=== PATIENT | male | born 1950 | race Caucasian/White ===

== ENCOUNTER → 2020-07-06 | Outpatient (CLI) | payer MEDICARE, OTHER ==
--- NOTE | 2020-07-06 16:29 | Diagnostic Imaging Report ---
INDICATION: Fall with left knee pain AP, oblique, and lateral views of the left knee are obtained. No fracture or acute bony abnormality is seen. Medial and lateral compartments appear preserved. There is minimal posterior patellar spurring. IMPRESSION: No acute abnormality of the left knee. Dictated by: Dictated on workstation # [id number]
== END ==
LOC: RAD 10:31
PROVIDERS: ATTEND Nurse Practitioner Family
DX: M25.562 Pain in left knee (principal)
CPT/HCPCS: 73562